=== PATIENT | male | born 1990 | race Hispanic/Latino ===

== ENCOUNTER 2024-03-01 20:55 | Emergency (ER) | payer OTHER ==
[~2024-03-01] VITALS: Ht 185.4 cm; Wt 75.0 kg
[~2024-03-01 20:55] MED LIST: BACTROBAN2 % EX; LANTUS100 MG/ML SC; NO MEDS
[2024-03-01] MEDS ORDERED: NEOMYCIN-BACITRACIN-POLYMYXIN 0.5 GM/PAK PAK TOP ONE (21:10)
[2024-03-01] MEDS ORDERED: Diph, Acellular Pertussis, Tet 0.5 ML/VIAL (Tdap) SDV IM ONE (21:10)
[2024-03-01 21:28] VITALS: BP 135/84
== END 2024-03-01 21:37 | DRG 605 ==
LOC: ED 20:55
DX: S00.01XA Abrasion of scalp, initial encounter (principal); S50.311A Abrasion of right elbow, initial encounter; S80.211A Abrasion, right knee, initial encounter; E11.9 Type 2 diabetes mellitus without complications; F17.200 Nicotine dependence, unspecified, uncomplicated; V57.5XXA Driver of pick-up truck or van injured in collision with fixed or stationary object in traffic accident, initial encounter; Z79.4 Long term (current) use of insulin